=== PATIENT | male | born 1990 | race Caucasian/White ===

== ENCOUNTER 2023-06-09 15:08 | Emergency (ER) | payer MEDICAID ==
[~2023-06-09] VITALS: Ht 190.5 cm; Wt 86.0 kg
[2023-06-09 15:13] VITALS: BP 136/82; PULSE 92; RESP 16; TEMP 98.8; O2SAT 98
[2023-06-09] MEDS ORDERED: IBUPROFEN 600MG TABLET PO ONE (15:30)
== END 2023-06-09 16:51 | disposition home or self-care (01) ==
LOC: ER 15:08
DX: R07.89 Other chest pain (principal); F41.9 Anxiety disorder, unspecified
CPT/HCPCS: 71045; 93005; 99283

== ENCOUNTER 2023-06-09 18:14 | Emergency (ER) | payer MEDICAID ==
[~2023-06-09] VITALS: Ht 180.3 cm; Wt 79.0 kg
[2023-06-09 18:40] VITALS: BP 143/100; PULSE 92; RESP 16; TEMP 98.6
== END 2023-06-09 20:49 | disposition left against medical advice (07) ==
LOC: ER 18:22
DX: R07.9 Chest pain, unspecified (principal); Z53.21 Procedure and treatment not carried out due to patient leaving prior to being seen by health care provider
CPT/HCPCS: 93005; 99281; 99284